=== PATIENT | male | born 1985 | race Caucasian/White ===

== ENCOUNTER → 2019-08-27 09:33 | Outpatient (CLI) | payer OTHER ==
[2015-02-08 10:45] VITALS: BMI 23.0
[~2019-08-27 09:33] MED LIST: ATIVAN1 MG PO; CARAFATE1 G/10 ML PO; NEURONTIN 300300 MG PO; PAROXETINE HCL10 MG PO; PEPCID20 MG PO; POTASSIUM20 MEQ/PKT PO; PROTONIX40 MG PO; ZOFRAN4 MG PO; ZYPREXA10 MG PO
== END | disposition home or self-care (01) ==
LOC: D.CT 09:33
PROVIDERS: ATTEND Nurse Practitioner Family
DX: S62.002A Unspecified fracture of navicular [scaphoid] bone of left wrist, initial encounter for closed fracture (principal)